=== PATIENT | male | born 1975 | race Caucasian/White ===

== ENCOUNTER 2016-12-15 15:04 | Emergency (ER) | payer SELFPAY ==
[2016-12-15] MEDS ORDERED: MORPHINE IM ONE (17:34)
[2016-12-15] MEDS ORDERED: TORADOL IM ONE (17:34)
[2016-12-15] MEDS ORDERED: ZOFRAN ODT PO ONE (17:34)
--- NOTE | 2016-12-15 18:35 | Emergency Department Report ---
ED Extremity Problem HPI - General Chief complaint: Extremity Injury, Lower Stated complaint: LFT FOOT PAIN Time Seen by Provider: 12/15/16 17:24 Source: patient, family, RN notes reviewed Mode of arrival: Ambulatory Limitations: Language Barrier - History of Present Illness Initial comments: PT c/o L ankle injury at work yesterday. PT tried taking Naprosyn without relief. Severity scale (0 -10): 8 Improves with: nothing Worsens with: weight bearing, walking, palpation Associated Symptoms: denies other symptoms - Related Data Previous Rx's Medication Instructions Recorded Last Taken Type Acetaminophen/Codeine [Tylenol #3] 1 tab PO Q6H PRN #12 tab 12/15/16 Unknown Rx Lisinopril [Zestril TAB] 5 mg PO QDAY #30 tablet 12/15/16 Unknown Rx Allergies Allergy/AdvReac Type Severity Reaction Status Date / Time No Known Allergies Allergy Unverified 12/15/16 15:59 ED Review of Systems ROS: Stated complaint: LFT FOOT PAIN Other details as noted in HPI Comment: All other systems reviewed and negative Skin: other (deneis wound/ bruising ). denies: change in color Neurological: abnormal gait (due to ankle pain ). denies: numbness ED Past Medical Hx - Past Medical History Hx Hypertension: Yes (NO MEDICATIONS) Hx Diabetes: Yes - Surgical History Hx Cholecystectomy: Yes - Social History Smoking Status: Current Every Day Smoker Substance Use Type: None - Medications Home Medications: Home Medications Medication Instructions Recorded Confirmed Last Taken Type Acetaminophen/Codeine [Tylenol #3] 1 tab PO Q6H PRN #12 tab 12/15/16 Unknown Rx Lisinopril [Zestril TAB] 5 mg PO QDAY #30 tablet 12/15/16 Unknown Rx ED Physical Exam - General Limitations: No Limitations General appearance: alert, in no apparent distress - Head Head exam: Present: atraumatic, normocephalic - Eye Eye exam: Present: normal appearance - ENT ENT exam: Present: normal exam, normal external ear exam - Neck Neck exam: Present: normal inspection, full ROM - Respiratory Respiratory exam: Present: normal lung sounds bilaterally. Absent: respiratory distress, chest wall tenderness - Cardiovascular Cardiovascular Exam: Present: regular rate, normal rhythm, normal heart sounds - GI/Abdominal GI/Abdominal exam: Present: soft. Absent: tenderness - Extremities Exam Extremities exam: Present: tenderness, other (L ankle tenderness to medial malleous. + 2 DP ). Absent: full ROM, joint swelling, calf tenderness - Back Exam Back exam: Present: full ROM - Neurological Exam Neurological exam: Present: alert, oriented X3 - Psychiatric Psychiatric exam: Present: normal affect ED Course Vital Signs 12/15/16 12/15/16 15:55 19:19 Temperature 98.6 F Pulse Rate 105 H 75 Respiratory 19 18 Rate Blood Pressure 117/115 Blood Pressure 170/100 [Left] O2 Sat by Pulse 96 98 Oximetry - Reevaluation(s) Reevaluation #1: 12/15/16 19:12 PT recieved IM Morphine for pain. PT did not report improvement. PT aware no fx seen on XR. Reevaluation #2: 12/15/16 19:19 PT states that when he is stressed of has high bg, that his bp is elevated. PT aware that his bp has been elevated on this visit and he will need to have it re -checked. - Pulse Oximetry Interpretation Digit-Finger Initial Pulse Oximetry Readin Actions Taken: none ED Medical Decision Making - Radiology Data Radiology results: image reviewed interpreted by me: no fx seen on L ankle xr Critical care attestation.: If time is entered above; I have spent that time in minutes in the direct care of this critically ill patient, excluding procedure time. ED Disposition Clinical Impression: Elevated blood pressure Left ankle sprain Qualifiers: Encounter type: initial encounter Involved ligament of ankle: unspecified ligament Qualified Code(s): S93.402A - Sprain of unspecified ligament of left ankle, initial encounter Disposition: DISCHARGED TO HOME OR SELFCARE Is pt being admited?: No Does the pt Need Aspirin: No Condition: Stable Instructions: Ankle Sprain (ED), Ankle Stirrup Splint (ED) Additional Instructions: No driving or ETOH after taking Tylenol #3 Follow up with PCP in 2-3 days Have your blood pressure checked on follow up Prescriptions: Acetaminophen/Codeine [Tylenol #3] 1 tab PO Q6H PRN #12 tab PRN Reason: Pain , Severe (7-10) Lisinopril [Zestril TAB] 5 mg PO QDAY #30 tablet Referrals: PRIMARY CARE, [Primary Care Provider] - 3-[address] [facility] [Outside] - 3-5 Days Time of Disposition: 19:16
[2016-12-15] MEDS ORDERED: NORCO 5/325 PO ONE (18:57)
[2016-12-15 19:20] VITALS: BP 170/100
--- NOTE | 2016-12-16 08:51 | XRay Report ---
LEFT ANKLE: The bones are well mineralized with normal bony contours and joint alignment. No fractures or destructive changes are noted and the adjacent soft tissues are normal. IMPRESSION: Normal study.
== END 2016-12-15 19:27 | disposition home or self-care (01) ==
LOC: ED 15:04
DX: S93.402A Sprain of unspecified ligament of left ankle, initial encounter (principal); I10 Essential (primary) hypertension; E11.9 Type 2 diabetes mellitus without complications; F17.200 Nicotine dependence, unspecified, uncomplicated; Z90.49 Acquired absence of other specified parts of digestive tract; X58.XXXA Exposure to other specified factors, initial encounter; Y93.89 Activity, other specified; Y99.0 Civilian activity done for income or pay; Y92.69 Other specified industrial and construction area as the place of occurrence of the external cause
CPT/HCPCS: 29515; 73610; 82962; 96372; 99284; J1885; J2270; Q0162